=== PATIENT | female | born 1985 | race Caucasian/White ===

== ENCOUNTER 2018-11-29 10:12 | Observation (INO) | payer BC ==
[~2018-11-29 10:12] MED LIST: Acetaminophen 500 MG Tab ONE
[2018-11-29] MEDS ORDERED: Acetaminophen 500 MG Tab PO ONE (10:27)
[2018-11-29] MEDS ORDERED: Ondansetron 4 MG/2 ML SDV IVPUSH PRN (10:48)
[2018-11-29] MEDS ORDERED: Sodium Chloride 0.9% 1,000 ML IV ONE (10:48)
[2018-11-29 11:31] LABS: CHLORIDE,CL 98 mEq/L (98-106); SODIUM,NA 132 mEq/L (136-145)
[2018-11-29] MEDS ORDERED: Iopamidol 755 Mg/ML 100 ML Bottle IVPUSH ONE (12:18)
--- NOTE | 2018-11-29 12:46 | EDM.PDOC ---
ED HPI GENERAL MEDICAL PROBLEM - General Chief Complaint: Fever Stated Complaint: fever Time Seen by Provider: 11/29/18 10:34 Source of Information: Reports: Patient History Limitations: Reports: No Limitations - History of Present Illness INITIAL COMMENTS - FREE TEXT/NARRATIVE: Valdemar is a 33 yo who presents to the ED just not feeling well. States she tried going to work today but felt so weak and could hardly stand. States she feels like she is running a fever and took ibuprofen this morning around 7:30. States she had similar symptoms about a month ago but wasn't as severe and just got better on her own. She denies cold symptoms or urine symptoms. 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 States she does have some low abdominal pain/cramping. States it almost feels like when she is getting her period but she had a normal cycle roughly two weeks ago. Denies any urinary symptoms. 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 Generalized Pain Score (Numeric/FACES): 8 - Related Data Allergies Allergy/AdvReac Type Severity Reaction Status Date / Time No Known Allergies Allergy Verified 11/29/18 10:28 Home Meds: Home Meds Acetaminophen [Tylenol Extra Strength] 1,000 mg PO ASDIRECTED PRN 11/29/18 [ History] Ibuprofen 400 mg PO ASDIRECTED PRN 11/29/18 [History] Past Medical History - Past Health History Medical/Surgical History: Denies Medical/Surgical History - Past Surgical History Head Surgeries/Procedures: Reports: None HEENT Surgical History: Reports: None Cardiovascular Surgical History: Reports: None Respiratory Surgical History: Reports: None GI Surgical History: Reports: None. Denies: Appendectomy, Cholecystectomy Female Surgical History: Reports: None Male Surgical History: Reports: None Endocrine Surgical History: Reports: None Neurological Surgical History: Reports: None Musculoskeletal Surgical History: Reports: None Oncologic Surgical History: Reports: None Social & Family History - Family History Family Medical History: Noncontributory - Tobacco Use Smoking Status *Q: Never Smoker - Caffeine Use Caffeine Use: Reports: None - Recreational Drug Use Recreational Drug Use: No ED ROS GENERAL - Review of Systems Review Of Systems: See Below Constitutional: Reports: Fever, Chills, Weakness, Decreased Appetite HEENT: Reports: No Symptoms Respiratory: Denies: Shortness of Breath, Wheezing, Cough Cardiovascular: Denies: Chest Pain, Palpitations Endocrine: Reports: No Symptoms GI/Abdominal: Reports: Abdominal Pain (low), Diarrhea, Decreased Appetite, Nausea. Denies: Black Stool, Bloody Stool, Constipation, Vomiting : Reports: No Symptoms. Denies: Discharge, Dysuria, Flank Pain, Frequency, Hematuria, Irregular Menses Musculoskeletal: Reports: No Symptoms Skin: Reports: No Symptoms Neurological: Reports: No Symptoms Psychiatric: Reports: No Symptoms ED EXAM, SEPSIS - Physical Exam Exam: See Below Exam Limited By: No Limitations General Appearance: Alert, No Apparent Distress, Lethargic Ears: Normal External Exam, Normal Canal, Hearing Grossly Normal, Normal TMs Nose: Normal Inspection, Normal Mucosa, No Blood Throat/Mouth: Normal Inspection, Normal Lips, Normal Teeth, Normal Gums, Normal Oropharynx, Normal Voice, No Airway Compromise Head: Atraumatic, Normocephalic Neck: Normal Inspection, Supple, Non-Tender Respiratory/Chest: No Respiratory Distress, Lungs Clear, Normal Breath Sounds, No Accessory Muscle Use Cardiovascular: Normal Peripheral Pulses, Regular Rate, Rhythm, No Murmur GI/Abdominal Exam: Soft, Non-Tender, No Organomegaly, No Distention, No Mass, Abnormal Bowel Sounds (hypoactive) Back: Normal Inspection Extremities: Normal Inspection, No Pedal Edema Neurological: Alert, Oriented, No Motor/Sensory Deficits Psychiatric: Normal Affect, Normal Mood Skin: No Rash, Increased Warmth Lymphatic: Bilateral: No Adenopathy Course - Vital Signs Last Recorded V/S: Last Vital Signs Temp 99.8 F 11/29/18 12:30 Pulse 125 H 11/29/18 10:20 Resp 18 11/29/18 10:20 BP 101/56 L 11/29/18 10:20 Pulse Ox 100 11/29/18 10:20 - Orders/Labs/Meds Orders: Active Orders 24 hr Category Date Time Status Abdomen Pelvis w Cont [CT] Stat Exams 11/29/18 12:12 Taken CULTURE BLOOD [BC] Stat Lab 11/29/18 11:08 Received CULTURE BLOOD [BC] Stat Lab 11/29/18 11:09 Received INFLUENZA A+B AG SCREEN [RM] Stat Lab 11/29/18 11:09 Received Ondansetron [Zofran] Med 11/29/18 10:48 Active 4 mg IVPUSH Q6H PRN Sodium Chloride 0.9% [Normal Saline] 500 ml Med 11/29/18 13:45 Active IV ASDIRECTED Medication Orders Sodium Chloride (Normal Saline) 500 mls @ 200 mls/hr IV ASDIRECTED CYNDY Last Admin: 11/29/18 13:48 Dose: 200 mls/hr Ondansetron HCl (Zofran) 4 mg IVPUSH Q6H PRN PRN Reason: Nausea Last Admin: 11/29/18 11:07 Dose: 4 mg Labs: Laboratory Tests 11/29/18 11/29/18 11/29/18 Range/Units 10:47 11:09 11:09 WBC 20.4 H* (5.0-10.0) 10^3/uL RBC 3.89 L (4.00-5.50) 10^6/uL Hgb 11.7 L (12.0-16.0) g/dL Hct 34.3 L (37.0-47.0) % MCV 88.2 (82.0-94.0) fL MCH 30.1 (27.0-32.0) pg MCHC 34.1 (33.0-38.0) g/dL RDW Coeff of Dulce 12.3 (11.0-15.0) % Plt Count 227 (150-400) 10^3/uL Add Manual Diff Yes Neutrophils % (Manual) 87 H (35-85) % Band Neutrophils % 8 H (0-5) % Lymphocytes % (Manual) 3 L (21-55) % Monocytes % (Manual) 2 (2-12) % Sodium 132 L (136-145) mEq/L Potassium 3.5 (3.5-5.0) mEq/L Chloride 98 (98-106) mEq/L Carbon Dioxide 23 (21-32) mmol/L BUN 12 (7-18) mg/dL Creatinine 0.9 (0.6-1.0) mg/dL Est Cr Clr Drug Dosing 72.86 mL/min Estimated GFR (MDRD) > 60 (>=60) mL/min Glucose 152 H (75-99) mg/dL Lactic Acid 1.2 (0.4-2.0) mmol/L Calcium 8.2 L (8.4-10.1) mg/dL Total Bilirubin 0.8 (0.0-1.0) mg/dL AST 12 L (15-37) U/L ALT 23 (12-78) U/L Alkaline Phosphatase 59 (46-116) U/L Creatine Kinase 69 (21-215) U/L C-Reactive Protein 5.1 H (0.2-0.8) mg/dL Total Protein 6.5 (6.4-8.2) g/dL Albumin 3.2 L (3.4-5.0) g/dL Amylase 15 L (25-115) U/L Urine Color (YELLOW) Urine Appearance (CLEAR) Urine pH (4.5-8.0) Ur Specific [place] (1.003-1.020) Urine Protein (NEGATIVE) mg/dL Urine Glucose (UA) (NEGATIVE) mg/dL Urine Ketones (NEGATIVE) mg/dL Urine Occult Blood (NEGATIVE) Urine Nitrite (NEGATIVE) Urine Bilirubin (NEGATIVE) Urine Urobilinogen (0.2-1.0) EU/dL Ur Leukocyte Esterase (NEGATIVE) Urine RBC (0-5) /HPF Urine WBC (0-5) /HPF Ur Squamous Epith Cells (NOT SEEN) /HPF Urine Mucus (NOT SEEN) /HPF Urine HCG, Qual 11/29/18 11/29/18 Range/Units 12:00 12:00 WBC (5.0-10.0) 10^3/uL RBC (4.00-5.50) 10^6/uL Hgb (12.0-16.0) g/dL Hct (37.0-47.0) % MCV (82.0-94.0) fL MCH (27.0-32.0) pg MCHC (33.0-38.0) g/dL RDW Coeff of [place]ce (11.0-15.0) % Plt Count (150-400) 10^3/uL Add Manual Diff Neutrophils % (Manual) (35-85) % Band Neutrophils % (0-5) % Lymphocytes % (Manual) (21-55) % Monocytes % (Manual) (2-12) % Sodium (136-145) mEq/L Potassium (3.5-5.0) mEq/L Chloride (98-106) mEq/L Carbon Dioxide (21-32) mmol/L BUN (7-18) mg/dL Creatinine (0.6-1.0) mg/dL Est Cr Clr Drug Dosing mL/min Estimated GFR (MDRD) (>=60) mL/min Glucose (75-99) mg/dL Lactic Acid (0.4-2.0) mmol/L Calcium (8.4-10.1) mg/dL Total Bilirubin (0.0-1.0) mg/dL AST (15-37) U/L ALT (12-78) U/L Alkaline Phosphatase (46-116) U/L Creatine Kinase (21-215) U/L C-Reactive Protein (0.2-0.8) mg/dL Total Protein (6.4-8.2) g/dL Albumin (3.4-5.0) g/dL Amylase (25-115) U/L Urine Color Dark yellow (YELLOW) Urine Appearance Clear (CLEAR) Urine pH 5.5 (4.5-8.0) Ur Specific [place] 1.010 (1.003-1.020) Urine Protein 30 H (NEGATIVE) mg/dL Urine Glucose (UA) Negative (NEGATIVE) mg/dL Urine Ketones Trace H (NEGATIVE) mg/dL Urine Occult Blood Negative (NEGATIVE) Urine Nitrite Negative (NEGATIVE) Urine Bilirubin Negative (NEGATIVE) Urine Urobilinogen 0.2 (0.2-1.0) EU/dL Ur Leukocyte Esterase Trace H (NEGATIVE) Urine RBC 0-5 (0-5) /HPF Urine WBC 0-5 (0-5) /HPF Ur Squamous Epith Cells Few H (NOT SEEN) /HPF Urine Mucus Moderate H (NOT SEEN) /HPF Urine HCG, Qual Negative Meds: Medications Generic Name Dose Route Start Last Admin Trade Name Freq PRN Reason Stop Dose Admin Sodium Chloride 500 mls @ 200 mls/hr 11/29/18 13:45 11/29/18 13:48 Normal Saline IV 200 mls/hr ASDIRECTED CYNDY Administration Ondansetron HCl 4 mg 11/29/18 10:48 11/29/18 11:07 Zofran IVPUSH 4 mg Q6H PRN Administration Nausea Discontinued Medications Generic Name Dose Route Start Last Admin Trade Name Freq PRN Reason Stop Dose Admin Acetaminophen Confirm 11/29/18 10:04 11/29/18 15:34 Tylenol Extra Strength Administered 11/29/18 10:05 Not Given Dose 1,000 mg .ROUTE .STK-MED ONE Acetaminophen 1,000 mg 11/29/18 10:27 11/29/18 10:30 Tylenol Extra Strength PO 11/29/18 10:28 1,000 mg ONETIME ONE Administration Sodium Chloride 1,000 mls @ 999 mls/hr 11/29/18 10:48 11/29/18 11:07 Normal Saline IV 11/29/18 11:48 999 mls/hr .BOLUS ONE Administration Iopamidol 100 ml 11/29/18 12:18 11/29/18 12:33 Isovue-370 (76%) IVPUSH 11/29/18 12: 90 ml ONETIME ONE Administration Departure - Departure Time of Disposition: 15:00 Disposition: Refer to Observation Clinical Impression: Gastroenteritis - Discharge Information - Problem List & Annotations (1) Gastroenteritis SNOMED Code(s): 93430339 Code(s): K52.9 - NONINFECTIVE GASTROENTERITIS AND COLITIS, UNSPECIFIED Status: Acute Current Visit: Yes - Problem List Review Problem List Initiated/Reviewed/Updated: Yes - My Orders Last 24 Hours: My Active Orders 11/29/18 10:48 Ondansetron [Zofran] 4 mg IVPUSH Q6H PRN 11/29/18 11:08 CULTURE BLOOD [BC] Stat 11/29/18 11:09 CULTURE BLOOD [BC] Stat INFLUENZA A+B AG SCREEN [RM] Stat 11/29/18 12:12 Abdomen Pelvis w Cont [CT] Stat 11/29/18 13:45 Sodium Chloride 0.9% [Normal Saline] 500 ml IV ASDIRECTED - Assessment/Plan Admission H&P: Please use this note as an admission H&P Last 24 Hours: My Active Orders 11/29/18 10:48 Ondansetron [Zofran] 4 mg IVPUSH Q6H PRN 11/29/18 11:08 CULTURE BLOOD [BC] Stat 11/29/18 11:09 CULTURE BLOOD [BC] Stat INFLUENZA A+B AG SCREEN [RM] Stat 11/29/18 12:12 Abdomen Pelvis w Cont [CT] Stat 11/29/18 13:45 Sodium Chloride 0.9% [Normal Saline] 500 ml IV ASDIRECTED Plan: Initial laboratory work did show leukocytosis with left shift. Proceeded with CT of the abdomen/pelvis which was negative for any acute changes. Consulted with Dr. Bejarano in regards to antibiotics and direct admission for observation. Dr. Bejarano recommended 1 time dose of Levaquin tonight and admit with repeat labs in am. Blood cultures are pending. Will obtain stool culture as well. Discussed CT and laboratory results with Valdemar. Fever has improved.
[2018-11-29] MEDS ORDERED: Sodium Chloride 0.9% 500 ML IV SCH (13:45)
[2018-11-29] MEDS ORDERED: Ondansetron 4 MG/2 ML SDV IV PRN (15:44)
[2018-11-29] MEDS ORDERED: Acetaminophen 325 MG Tab PO PRN (15:44)
[2018-11-29] MEDS ORDERED: Levofloxacin/Dextrose 5%-Water 500 MG in Premix Bag 1 BAG IV ONE (15:44)
[2018-11-29] MEDS: Sodium Chloride 0.9% 1,000 ML IV SCH (16:21)
[2018-11-29] MEDS: Ibuprofen 200 MG Tab PO PRN (17:07)
[2018-11-30] MEDS: Sodium Chloride 0.9% 1,000 ML IV SCH ×3 (00:44→19:08)
[2018-11-30] MEDS: Ibuprofen 200 MG Tab PO PRN (07:37)
[2018-11-30 08:11] LABS: CHLORIDE,CL 109 mEq/L (98-106); SODIUM,NA 141 mEq/L (136-145)
[2018-11-30] MEDS: metroNIDAZOLE/Normal Saline 500 MG in Premix Bag 1 BAG IV SCH ×2 (11:13→16:19)
--- NOTE | 2018-11-30 21:37 | PCM.PN ---
- General Info Date of Service: 11/30/18 Admission Dx/Problem (Free Text): Leukocytosis with possible sepsis Functional Status: Reports: Pain Controlled, Ambulating. Denies: Tolerating Diet - Review of Systems General: Reports: Fever, Weakness, Fatigue, Malaise HEENT: Reports: No Symptoms Pulmonary: Denies: Shortness of Breath, Cough Cardiovascular: Denies: Chest Pain, Edema, Lightheadedness Gastrointestinal: Reports: Abdominal Pain, Diarrhea, Nausea. Denies: Vomiting Genitourinary: Reports: No Symptoms Musculoskeletal: Reports: No Symptoms Skin: Reports: No Symptoms Neurological: Reports: Weakness - Patient Data Vitals - Most Recent: Last Vital Signs Temp 98.3 F 11/30/18 20:00 Pulse 75 11/30/18 20:00 Resp 20 11/30/18 20:00 BP 102/67 11/30/18 20:00 Pulse Ox 99 11/30/18 20:00 Weight - Most Recent: 118 lb I&O - Last 24 Hours: Intake & Output 11/30/18 11/30/18 11/30/18 06:59 14:59 22:59 Intake Total 1000 1100 1000 Balance 1000 1100 1000 Lab Results Last 24 Hours: Laboratory Results - last 24 hr 11/30/18 11/30/18 Range/Units 07:00 07:00 WBC 15.1 H (5.0-10.0) 10^3/uL RBC 3.76 L (4.00-5.50) 10^6/uL Hgb 11.2 L (12.0-16.0) g/dL Hct 34.3 L (37.0-47.0) % MCV 91.2 (82.0-94.0) fL MCH 29.8 (27.0-32.0) pg MCHC 32.7 L (33.0-38.0) g/dL RDW Coeff of Dulce 12.7 (11.0-15.0) % Plt Count 202 (150-400) 10^3/uL Neut % (Auto) 83.2 (35-85) % Lymph % (Auto) 8.5 L (10-55) % [place] % (Auto) 7.6 (0-16) % Eos % (Auto) 0.6 (0-5) % Baso % (Auto) 0.1 (0-3) % Neut # (Auto) 12.60 H (1.80-7.00) 10^3/uL Lymph # (Auto) 1.28 (1.00-4.80) 10^3/uL [place] # (Auto) 1.15 H (0.00-0.80) 10^3/uL Eos # (Auto) 0.09 (0.00-0.45) 10^3/uL Baso # (Auto) 0.01 10^3/uL Sodium 141 (136-145) mEq/L Potassium 4.0 (3.5-5.0) mEq/L Chloride 109 H (98-106) mEq/L Carbon Dioxide 25 (21-32) mmol/L BUN 9 (7-18) mg/dL Creatinine 0.7 (0.6-1.0) mg/dL Est Cr Clr Drug Dosing 93.68 mL/min Estimated GFR (MDRD) > 60 (>=60) mL/min Glucose 88 D (75-99) mg/dL Calcium 8.0 L (8.4-10.1) mg/dL C-Reactive Protein 13.7 H (0.2-0.8) mg/dL Wse Results Last 24 Hours: Microbiology 11/29/18 18:00 Stool for WBCs - Final Stool / Feces NO WBC SEEN REFERENCE RANGE: NO WBC SEEN 11/29/18 11:09 Aerobic Blood Culture - Preliminary Blood NO GROWTH AFTER 1 DAY Anaerobic Blood Culture - Preliminary NO GROWTH AFTER 1 DAY 11/29/18 11:08 Aerobic Blood Culture - Preliminary Blood NO GROWTH AFTER 1 DAY Anaerobic Blood Culture - Preliminary NO GROWTH AFTER 1 DAY 11/29/18 18:00 C. difficile DNA Amplification - Final Stool / Feces Positive C. Diff Dna 11/29/18 11:09 Influenza Type A Antigen Screen - Final Nasal, Unspecified NEGATIVE INFLUENZA A VIRUS AG REFERENCE RANGE: NEGATIVE Influenza Type B Antigen Screen - Final NEGATIVE INFLUENZA B VIRUS AG REFERENCE RANGE: NEGATIVE Med Orders - Current: Current Medications Acetaminophen (Tylenol) 650 mg PO Q4H PRN PRN Reason: Pain (Mild 1-3)/fever Last Admin: 11/30/18 00:07 Dose: 650 mg Sodium Chloride (Normal Saline) 1,000 mls @ 125 mls/hr IV ASDIRECTED CYNDY Last Admin: 11/30/18 19:08 Dose: 125 mls/hr Metronidazole 500 mg/ Premix 100 mls @ 100 mls/hr IV TID@0000,0800,1600 [facility] Last Admin: 11/30/18 16:19 Dose: 100 mls/hr Ibuprofen (Motrin) 400 mg PO Q6H PRN PRN Reason: Pain (mild 1-3) Last Admin: 11/30/18 07:37 Dose: 400 mg Ondansetron HCl (Zofran) 4 mg IV Q4H PRN PRN Reason: Nausea/Vomiting Last Admin: 11/30/18 20:13 Dose: 4 mg Discontinued Medications Acetaminophen (Tylenol Extra Strength) Confirm Administered Dose 1,000 mg .ROUTE .STK-MED ONE Stop: 11/29/18 10:05 Last Admin: 11/29/18 15:34 Dose: Not Given Acetaminophen (Tylenol Extra Strength) 1,000 mg PO ONETIME ONE Stop: 11/29/18 10:28 Last Admin: 11/29/18 10:30 Dose: 1,000 mg Sodium Chloride (Normal Saline) 1,000 mls @ 999 mls/hr IV .BOLUS ONE Stop: 11/29/18 11:48 Last Admin: 11/29/18 11:07 Dose: 999 mls/hr Sodium Chloride (Normal Saline) 500 mls @ 200 mls/hr IV ASDIRECTED [facility] Last Admin: 11/29/18 13:48 Dose: 200 mls/hr Levofloxacin/Dextrose 500 mg/ (Premix) 100 mls @ 100 mls/hr IV ONETIME ONE Stop: 11/29/18 16:43 Last Admin: 11/29/18 16:22 Dose: 100 mls/hr Iopamidol (Isovue-370 (76%)) 100 ml IVPUSH ONETIME ONE Stop: 11/29/18 12:19 Last Admin: 11/29/18 12:33 Dose: 90 ml Ondansetron HCl (Zofran) 4 mg IVPUSH Q6H PRN PRN Reason: Nausea Last Admin: 11/29/18 11:07 Dose: 4 mg - Exam General: Alert, Oriented HEENT: Mucous Membr. Moist/[place] Neck: Supple Lungs: Clear to Auscultation, Normal Respiratory Effort Cardiovascular: Regular Rate, Regular Rhythm GI/Abdominal Exam: Normal Bowel Sounds, Soft, Non-Tender Extremities: Normal Inspection, No Pedal Edema Skin: Warm, Dry Neurological: No New Focal Deficit - Problem List & Annotations (1) Leukocytosis SNOMED Code(s): 847736732, 614340722 Code(s): D72.829 - ELEVATED WHITE BLOOD CELL COUNT, UNSPECIFIED Status: Acute Priority: High Current Visit: Yes (2) C. difficile diarrhea SNOMED Code(s): 4878359988260 Code(s): A04.72 - ENTEROCOLITIS D/T CLOSTRIDIUM DIFFICILE, NOT SPCF RECUR Status: Acute Priority: High Current Visit: Yes - Problem List Review Problem List Initiated/Reviewed/Updated: Yes - My Orders Last 24 Hours: My Active Orders 11/30/18 09:45 metroNIDAZOLE/Normal Saline [Flagyl 500 MG in NS 100 ML] 500 mg Premix Bag 1 bag IV TID@0000,0800,1600 - Assessment Assessment:: Leukocytosis C diff diarrhea - Plan Plan:: Patient feeling only minimally improved today. Continues to feel weak, nauseated at times. Crampy prior to diarrhea stools, which she states is still frequent. Low grade fevers at 100.2. Blood pressure low. WBC is improved to 15.1 today, CRP up to 13.7. Stools positive for c diff Will add Flagyl IV every 8 hours. Continue IV fluids. Monitor labs. Possible discharge home tomorrow.
[2018-12-01] MEDS: metroNIDAZOLE/Normal Saline 500 MG in Premix Bag 1 BAG IV SCH ×2 (00:09→08:01)
[2018-12-01] MEDS: Sodium Chloride 0.9% 1,000 ML IV SCH (03:33)
[2018-12-01 08:45] LABS: CHLORIDE,CL 110 mEq/L (98-106); SODIUM,NA 142 mEq/L (136-145)
--- NOTE | 2018-12-01 22:26 | PCM.DCSUM1 ---
Discharge Summary - Hospital Course Free Text/Narrative:: Patient is a 33 year old who presented to the ER with generalized malaise and weakness. States had tried to go to work but was unable to due to weakness. Has had chills, possibly running a fever. States had similar occurrence a month ago but got better on her own. No upper respiratory symptoms. No urinary complaints. Had been having low abdominal cramping and diarrhea. WBC 20.4 in ER with 8% bands. Hemoglobin 11.. Sodium mildly low at 132. Lactic acid normal at 1.2. CRP 5.1. Urine negative. CT scan of the abdomen was negative. Admitted and started on IV fluids, given one dose of Levaquin. Obtain stool cultures, blood cultures. Diagnosis: Stroke: No Modified [place] Scale: No Symptoms at All Modified [place] Scale Score: 0 - Discharge Data Discharge Date: 12/01/18 Discharge Disposition: Home, Self-Care 01 Condition: Good - Discharge Diagnosis/Problem(s) (1) Leukocytosis SNOMED Code(s): 201479581, 178571631 ICD Code: D72.829 - ELEVATED WHITE BLOOD CELL COUNT, UNSPECIFIED Status: Acute Priority: High (2) C. difficile diarrhea SNOMED Code(s): 1081856139949 ICD Code: A04.72 - ENTEROCOLITIS D/T CLOSTRIDIUM DIFFICILE, NOT SPCF RECUR Status: Acute Priority: High - Patient Summary/Data Complications: none Hospital Course: Patient is feeling somewhat better. Has minimal appetite yet. Is ambulating about. No abdominal pain. Does get nauseated at times. Diarrhea has improved , was positive for c diff and patient started on IV Flagyl yesterday. WBC has improved now, 8.3 today. Sodium has improved from 132 to 142. CRP did peak at 13.7, now 8.9. Will discharge home on oral Flagyl. Offered Zofran but did not feel that helped so declines. Push fluids. Rest. Follow up in one week with Nancy - Patient Instructions Diet: Usual Diet as Tolerated Activity: As Tolerated - Discharge Plan *PRESCRIPTION DRUG MONITORING PROGRAM REVIEWED*: No *COPY OF PRESCRIPTION DRUG MONITORING REPORT IN PATIENT JOHN: No Prescriptions/Med Rec: metroNIDAZOLE [Flagyl] 500 mg PO Q8H #30 tab Home Medications: Home Meds Acetaminophen [Tylenol Extra Strength] 1,000 mg PO ASDIRECTED PRN 11/29/18 [ History] Ibuprofen 400 mg PO ASDIRECTED PRN 11/29/18 [History] metroNIDAZOLE [Flagyl] 500 mg PO Q8H #30 tab 12/01/18 [Rx] Patient Handouts: Clostridium Difficile Infection Forms: ED Department Discharge Referrals: Laura Keller PA [ED Midlevel Provider] - (Follow up with Nancy Keller in one week in [place]) - Discharge Summary/Plan Comment DC Time >30 min.: No - General Info Date of Service: 12/01/18 Admission Dx/Problem (Free Text: Leukocytosis with possible sepsis Functional Status: Reports: Pain Controlled, Tolerating Diet (eating only in small amounts), Ambulating - Review of Systems General: Reports: Weakness, Fatigue, Malaise. Denies: Fever HEENT: Reports: No Symptoms Pulmonary: Denies: Shortness of Breath, Cough Cardiovascular: Denies: Chest Pain, Edema, Lightheadedness Gastrointestinal: Reports: Diarrhea. Denies: Abdominal Pain, Nausea, Vomiting Genitourinary: Reports: No Symptoms Musculoskeletal: Reports: No Symptoms Skin: Reports: No Symptoms Neurological: Reports: Weakness - Patient Data Vitals - Most Recent: Last Vital Signs Temp 97.5 F 12/01/18 07:58 Pulse 70 12/01/18 07:58 Resp 16 12/01/18 07:58 BP 106/69 12/01/18 07:58 Pulse Ox 97 12/01/18 07:58 Weight - Most Recent: 118 lb I&O - Last 24 hours: Intake & Output 12/01/18 12/01/18 12/01/18 06:59 14:59 22:59 Intake Total 1100 Balance 1100 Lab Results - Last 24 hrs: Laboratory Results - last 24 hr 12/01/18 12/01/18 Range/Units 08:35 08:35 WBC 8.3 (5.0-10.0) 10^3/uL RBC 3.57 L (4.00-5.50) 10^6/uL Hgb 10.6 L (12.0-16.0) g/dL Hct 32.6 L (37.0-47.0) % MCV 91.3 (82.0-94.0) fL MCH 29.7 (27.0-32.0) pg MCHC 32.5 L (33.0-38.0) g/dL RDW Coeff of Dulce 12.7 (11.0-15.0) % Plt Count 192 (150-400) 10^3/uL Neut % (Auto) 72.5 (35-85) % Lymph % (Auto) 15.7 (10-55) % [place] % (Auto) 9.4 (0-16) % Eos % (Auto) 2.3 (0-5) % Baso % (Auto) 0.1 (0-3) % Neut # (Auto) 6.04 (1.80-7.00) 10^3/uL Lymph # (Auto) 1.31 (1.00-4.80) 10^3/uL [place] # (Auto) 0.78 (0.00-0.80) 10^3/uL Eos # (Auto) 0.19 (0.00-0.45) 10^3/uL Baso # (Auto) 0.01 10^3/uL Sodium 142 (136-145) mEq/L Potassium 4.0 (3.5-5.0) mEq/L Chloride 110 H (98-106) mEq/L Carbon Dioxide 23 (21-32) mmol/L BUN 7 (7-18) mg/dL Creatinine 0.7 (0.6-1.0) mg/dL Est Cr Clr Drug Dosing 93.68 mL/min Estimated GFR (MDRD) > 60 (>=60) mL/min Glucose 103 H (75-99) mg/dL Calcium 7.9 L (8.4-10.1) mg/dL C-Reactive Protein 8.9 H (0.2-0.8) mg/dL COLTEN Results - Last 24 hrs: Microbiology 11/29/18 11:09 Aerobic Blood Culture - Preliminary Blood NO GROWTH AFTER 2 DAYS Anaerobic Blood Culture - Preliminary NO GROWTH AFTER 2 DAYS 11/29/18 11:08 Aerobic Blood Culture - Preliminary Blood NO GROWTH AFTER 2 DAYS Anaerobic Blood Culture - Preliminary NO GROWTH AFTER 2 DAYS Med Orders - Current: Current Medications Discontinued Medications Acetaminophen (Tylenol Extra Strength) Confirm Administered Dose 1,000 mg .ROUTE .STK-MED ONE Stop: 11/29/18 10:05 Last Admin: 11/29/18 15:34 Dose: Not Given Acetaminophen (Tylenol Extra Strength) 1,000 mg PO ONETIME ONE Stop: 11/29/18 10:28 Last Admin: 11/29/18 10:30 Dose: 1,000 mg Acetaminophen (Tylenol) 650 mg PO Q4H PRN PRN Reason: Pain (Mild 1-3)/fever Last Admin: 11/30/18 00:07 Dose: 650 mg Sodium Chloride (Normal Saline) 1,000 mls @ 999 mls/hr IV .BOLUS ONE Stop: 11/29/18 11:48 Last Admin: 11/29/18 11:07 Dose: 999 mls/hr Sodium Chloride (Normal Saline) 500 mls @ 200 mls/hr IV ASDIRECTED [facility] Last Admin: 11/29/18 13:48 Dose: 200 mls/hr Levofloxacin/Dextrose 500 mg/ (Premix) 100 mls @ 100 mls/hr IV ONETIME ONE Stop: 11/29/18 16:43 Last Admin: 11/29/18 16:22 Dose: 100 mls/hr Sodium Chloride (Normal Saline) 1,000 mls @ 125 mls/hr IV ASDIRECTED [facility] Last Admin: 12/01/18 03:33 Dose: 125 mls/hr Metronidazole 500 mg/ Premix 100 mls @ 100 mls/hr IV TID@0000,0800,1600 [facility] Last Admin: 12/01/18 08:01 Dose: 100 mls/hr Ibuprofen (Motrin) 400 mg PO Q6H PRN PRN Reason: Pain (mild 1-3) Last Admin: 11/30/18 07:37 Dose: 400 mg Iopamidol (Isovue-370 (76%)) 100 ml IVPUSH ONETIME ONE Stop: 11/29/18 12:19 Last Admin: 11/29/18 12:33 Dose: 90 ml Ondansetron HCl (Zofran) 4 mg IVPUSH Q6H PRN PRN Reason: Nausea Last Admin: 11/29/18 11:07 Dose: 4 mg Ondansetron HCl (Zofran) 4 mg IV Q4H PRN PRN Reason: Nausea/Vomiting Last Admin: 11/30/18 20:13 Dose: 4 mg - Exam General: Reports: Alert, Oriented HEENT: Reports: Mucous Membr. Moist/[place] Neck: Reports: Supple Lungs: Reports: Clear to Auscultation, Normal Respiratory Effort Cardiovascular: Reports: Regular Rate, Regular Rhythm GI/Abdominal Exam: Normal Bowel Sounds, Soft, Non-Tender Extremities: Normal Inspection, No Pedal Edema Skin: Reports: Warm, Dry Neurological: Reports: No New Focal Deficit
== END 2018-12-01 09:11 | disposition home or self-care (01) ==
LOC: CC.ED 10:12 → CC.MS 15:05 → UNDOADMOB 15:05 → CC.MS 15:36
PROVIDERS: ADMIT Physician Assistant Medical; ATTEND Family Medicine
DX: A04.72 Enterocolitis due to Clostridium difficile, not specified as recurrent (principal)
CPT/HCPCS: 36415; 74177; 80048; 80053; 81001; 81025; 82150; 82550; 83605; 85025; 86140; 87040; 87045; 87046; 87493; 87804; 89055; 96361; 96365; 96366; 96367; 96374; 96375; 96376; 99284-25; A4217; A9270-GY; G0378; J1956; J2405; J3490; J7030; J7040; Q9967